=== PATIENT | male | born 1950 | race African-American/Black ===

== ENCOUNTER 2022-09-22 00:59 | Inpatient (IN) | payer MEDICARE, MEDICAID, OTHER ==
[~2022-09-22] VITALS: Ht 188 cm; Wt 69.4 kg
[2022-09-22] MEDS ORDERED: DEXAMETHASONE 10 MG/ML VIAL IV ONE (01:30)
[2022-09-22] MEDS ORDERED: FAMOTIDINE 20MG/2ML VIAL IV ONE (01:30)
[2022-09-22] MEDS ORDERED: SODIUM CHLORIDE 0.9% 1,000 ML IV ONE (01:30)
[2022-09-22] MEDS ORDERED: DIPHENHYDRAMINE 50MG/ML VIAL IV ONE (01:30)
[2022-09-22 01:56] LABS: BASOPHILS % 0.8 % (0.0-2.0); EOSINOPHILS % 1.3 % (0.0-5.0); HEMATOCRIT. 39.8 % (42.0-52.0); HEMOGLOBIN. 13.4 g/dL (14.0-18.0); MEAN CORPUSCULAR HEMOGLOBIN 34.5 pg (28.0-32.0); MEAN CORPUSCULAR VOLUME 102.3 fL (80.0-94.0); MONOCYTES % 12.3 % (2.0-8.0); NEUTROPHILS % 62.6 % (40.0-76.0); PLATELET 191 x1000/uL (130-400); RED BLOOD CELL COUNT 3.89 mill/uL (4.7-6.1); RED CELL DISTRIBUTION WIDTH 12.9 % (11.6-14.6)
[2022-09-22 02:00] LABS: CHLORIDE 105 mEq/L (98-107)
[2022-09-22] MEDS ORDERED: FURO20TA4 PO (05:32)
[2022-09-22] MEDS ORDERED: FOLI-43 PO (05:32)
[2022-09-22] MEDS ORDERED: NALT50TA PO (05:32)
[2022-09-22] MEDS ORDERED: ASPI-1406 PO (05:32)
[2022-09-22] MEDS ORDERED: ERGO1250 PO (05:32)
[2022-09-22] MEDS ORDERED: MIRT-89 PO (05:32)
[2022-09-22 05:38] VITALS: BP 107/77
[2022-09-22 05:40] VITALS: BP 107/77
[2022-09-22 07:52] VITALS: BP 125/66
[2022-09-22] MEDS ORDERED: DEXAMETHASONE 4MG/ML 1ML VIAL IV PRN (08:00)
[2022-09-22] MEDS ORDERED: DIPHENHYDRAMINE 50MG/ML VIAL IV PRN (08:00)
[2022-09-22] MEDS ORDERED: ACETAMINOPHEN 325MG TABLET PO PRN (08:00)
[2022-09-22] MEDS ORDERED: FUROSEMIDE 20MG TABLET PO SCH (09:00)
[2022-09-22] MEDS ORDERED: FOLIC ACID 1MG TABLET PO SCH (09:00)
[2022-09-22] MEDS ORDERED: ASPIRIN 81MG EC TABLET PO SCH (09:00)
[2022-09-22] MEDS ORDERED: NALTREXONE HCL 50MG TABLET PO SCH (10:00)
[2022-09-22] MEDS ORDERED: METHYLPREDNISOLONE SOD SUCC 125 MG/2 ML VIAL IV SCH (12:15)
[2022-09-22] MEDS ORDERED: MIRTAZAPINE 15MG TABLET PO SCH (21:00)
[2022-09-23] MEDS ORDERED: INFLUENZA VACCINE 05/PF 0.5 ML SYRINGE IM ONE (09:00)
== END 2022-09-22 12:52 | disposition left against medical advice (07) | DRG 916 ==
LOC: ER 01:36 → MICUSO 04:19 → 7WST 05:05
PROVIDERS: ADMIT Internal Medicine; ATTEND Internal Medicine
DX: T78.3XXA Angioneurotic edema, initial encounter (principal); J44.9 Chronic obstructive pulmonary disease, unspecified; I10 Essential (primary) hypertension; R13.10 Dysphagia, unspecified; T46.4X5A Adverse effect of angiotensin-converting-enzyme inhibitors, initial encounter; Z53.29 Procedure and treatment not carried out because of patient's decision for other reasons; Y92.89 Other specified places as the place of occurrence of the external cause
CPT/HCPCS: 36415; 71045; 80053; 83036; 85025; 86850; 86900; 99291; J1100; J1200; J2930; J3490; J7030